=== PATIENT | female | born 1985 | race Caucasian/White ===

== ENCOUNTER 2016-04-15 21:34 | Emergency (ER) | payer SELFPAY ==
--- NOTE | 2016-04-15 21:53 | ER Document Report ---
ED Medical Screen (RME) - General Stated Complaint: RAPID HEART BEAT/CHEST PAIN Notes: 30 yo female c/o rapid heart beat and palpitations since 0 today. 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 no chest pain. mild shortness of breath. small amount of caffeine today, no OTC supplements or vitamins, + smoker. TRAVEL OUTSIDE OF THE [place] IN LAST 30 DAYS: No - Related Data Allergies/Adverse Reactions: Sulfa (Sulfonamide Antibiotics) Allergy (Verified 09/30/12 22:14) shrimp Allergy (Intermediate, Uncoded 09/30/12 22:14) Past Medical History - Social History Family history: Reviewed & Not Pertinent Psychiatric Medical History: Reports: Hx Depression Past Surgical History: Reports: Hx Cardiac Catheterization - WPW ablation, Hx Genitourinary Surgery - Cervical ablation (LEEP)
[2016-04-15 22:16] LABS: ABSOLUTE BASOPHILS # (AUTO) 0.1 10^3/uL (0.0-0.2); ABSOLUTE EOSINOPHILS # (AUTO) 0.2 10^3/uL (0.0-0.6); ABSOLUTE LYMPHOCYTES (AUTO) 3.7 10^3/uL (0.5-4.7); ABSOLUTE NEUT (AUTO) 6.5 10^3/uL (1.7-8.2); BASOPHILS % (AUTO) 0.8 % (0-2); EOSINOPHILS % (AUTO) 1.6 % (0-6); HEMATOCRIT 40.5 % (36.0-47.0); HEMOGLOBIN 14.1 g/dL (12.0-15.5); HGB HCT DIFFERENCE 1.8; LYMPHOCYTES % (AUTO) 31.9 % (13-45); MEAN CORPUSCULAR HEMOGLOBIN 29.8 pg (27.0-33.4); MEAN CORPUSCULAR HGB CONC 34.7 g/dL (32.0-36.0); MEAN CORPUSCULAR VOLUME 86 fl (80-97); MONOCYTES % (AUTO) 8.6 % (3-13); RED BLOOD COUNT 4.71 10^6/uL (3.72-5.28); RED CELL DISTRIBUTION WIDTH 12.7 % (11.5-14.0); SEGMENTED NEUTROPHILS % (AUTO) 57.1 % (42-78); WHITE BLOOD COUNT 11.5 10^3/uL (4.0-10.5)
[2016-04-15 22:35] LABS: ALANINE AMINOTRANSFERASE 22 U/L (9-52); ALBUMIN 4.6 g/dL (3.5-5.0); ALKALINE PHOSPHATASE 79 U/L (38-126); ANION GAP 12 (5-19); ASPARTATE AMINO TRANSFERASE 17 U/L (14-36); BILIRUBIN,TOTAL 0.4 mg/dL (0.2-1.3); BLOOD UREA NITROGEN 14 mg/dL (7-20); CALCIUM 9.8 mg/dL (8.4-10.2); CARBON DIOXIDE 26 mmol/L (22-30); CHLORIDE 104 mmol/L (98-107); CREATININE RESULT 0.63 mg/dL (0.52-1.25); GLUCOSE 99 mg/dL (75-110); POTASSIUM 4.1 mmol/L (3.6-5.0); SODIUM 141.7 mmol/L (137-145); TOTAL PROTEIN 7.4 g/dL (6.3-8.2)
--- NOTE | 2016-04-15 23:54 | ER Document Report ---
ED General - General Chief Complaint: Palpitations Stated Complaint: RAPID HEART BEAT/CHEST PAIN Notes: Patient is a 30-year-old female who presents with palpitations that of been ongoing since this morning. States that she has a history of similar symptoms in the past and was actually on a beta ja at one point but discontinued this due to side effects. States she often has his but typically they resolve spontaneously. Nothing worsens her symptoms. Notes that she has been drinking a large amount of caffeine recently due to schoolwork. She has not seen her primary care physician or child abuse worker regarding today's concerns. She denies any associated hemoptysis, shortness of breath, diaphoresis, or exertional dyspnea. No chest pain. No history of DVT or pulmonary embolus. TRAVEL OUTSIDE OF THE [place] IN LAST 30 DAYS: No - Related Data Allergies/Adverse Reactions: Sulfa (Sulfonamide Antibiotics) Allergy (Verified 09/30/12 22:14) shrimp Allergy (Intermediate, Uncoded 09/30/12 22:14) Past Medical History - General Information source: Patient - Social History Smoking Status: Current Every Day Smoker Frequency of alcohol use: None Drug Abuse: None Lives with: Spouse/Significant other Family History: Reviewed & Not Pertinent Patient has suicidal ideation: No Patient has homicidal ideation: No Renal/ Medical History: Denies: Hx Peritoneal Dialysis Psychiatric Medical History: Reports: Hx Depression Past Surgical History: Reports: Hx Cardiac Catheterization - WPW ablation, Hx Genitourinary Surgery - Cervical ablation (LEEP) Review of Systems - Review of Systems Notes: Constitutional: Negative for fever. HENT: Negative for sore throat. Eyes: Negative for visual changes. Cardiovascular: Negative for chest pain. Positive for palpitations Respiratory: Negative for shortness of breath. Gastrointestinal: Negative for abdominal pain, vomiting or diarrhea. Genitourinary: Negative for dysuria. Musculoskeletal: Negative for back pain. Skin: Negative for rash. Neurological: Negative for headaches, weakness or numbness. 10 point ROS negative except as marked above and in HPI. Physical Exam - Vital signs Vitals: Temp Pulse BP Pulse Ox 97.8 F 71 101/67 99 04/16/16 00:28 04/16/16 00:28 04/16/16 00:28 04/16/16 00:28 Interpretation: Normal Notes: PHYSICAL EXAMINATION: GENERAL: Well-appearing, well-nourished and in no acute distress. HEAD: Atraumatic, normocephalic. EYES: Pupils equal round and reactive to light, extraocular movements intact, sclera anicteric, conjunctiva are normal. ENT: nares patent, oropharynx clear without exudates. Moist mucous membranes. NECK: Normal range of motion, supple without lymphadenopathy LUNGS: Breath sounds clear to auscultation bilaterally and equal. No wheezes rales or rhonchi. HEART: Regular rate and rhythm without murmurs ABDOMEN: Soft, nontender, normoactive bowel sounds. No guarding, no rebound. No masses appreciated. EXTREMITIES: Normal range of motion, no pitting or edema. No cyanosis. NEUROLOGICAL: No focal neurological deficits. Moves all extremities spontaneously and on command. PSYCH: Normal mood, normal affect. SKIN: Warm, Dry, normal turgor, no rashes or lesions noted. Course - Re-evaluation Re-evalutation: 04/15/16 23:53 Patient presents with palpitations but is in no acute distress. Vitals within normal limits at time of arrival. EKG unremarkable with a normal sinus rhythm. Laboratories are unremarkable. Patient denies any chest pain, shortness of breath, or vomiting. At this time based on exam and history do not suspect a new onset arrhythmia, ACS, acute pulmonary embolus, aortic dissection. Patient encouraged to follow-up with her primary care physician as well as cardiology and a referral has been provided. At this time will discharge with return precautions and follow-up recommendations. Verbal discharge instructions given a the bedside and opportunity for questions given. Medication warnings reviewed. Patient is in agreement with this plan and has verbalized understanding of return precautions and the need for primary care follow-up in the next 24-72 hours. - Vital Signs Vital signs: Temp Pulse Resp BP Pulse Ox 97.8 F 71 101/67 99 04/16/16 00:28 04/16/16 00:28 04/16/16 00:28 04/16/16 00:28 - Laboratory Result Diagrams: 04/15/16 22:00 04/15/16 22:00 Laboratory results interpreted by me: 04/15/16 22:00 WBC 11.5 H - EKG Interpretation by Me Additional EKG results interpreted by me: 04/16/16 03:39 Normal sinus rhythm. Intermittent PVCs. Rate 70. No ST elevations or depressions. Discharge - Discharge Clinical Impression: Palpitations Condition: Good Disposition: HOME, SELF-CARE Additional Instructions: Please follow-up closely with cardiology regarding your palpitations. Return if you pass out, have shortness of breath, persistent vomiting, develop significant chest pain, or have any other symptoms that are concerning to you. Referrals: LORENZO MATHIAS MD [ACTIVE STAFF] - Follow up as needed
[2016-04-16 00:30] VITALS: BP 101/67
--- NOTE | 2016-04-16 12:55 | EKG REPORT ---
SEVERITY:- OTHERWISE NORMAL ECG - SINUS RHYTHM VENTRICULAR PREMATURE COMPLEX : Confirmed by: Yulissa Velasquez 16-Apr-2016 12:54:24
== END 2016-04-16 00:31 | disposition home or self-care (01) ==
LOC: ER 21:34
DX: R00.2 Palpitations (principal); F17.200 Nicotine dependence, unspecified, uncomplicated; Z88.2 Allergy status to sulfonamides; Z91.013 Allergy to seafood
CPT/HCPCS: 36415; 71020; 80053; 85025; 93005; 93010; 99285

== ENCOUNTER 2017-03-27 17:46 | Emergency (ER) | payer SELFPAY ==
[2017-03-27 17:51] VITALS: BP 139/85
[2017-03-27] MEDS ORDERED: ACETAMINOPHEN 325 MG TABLET PO ONE (18:01)
--- NOTE | 2017-03-27 18:06 | ER Document Report ---
HPI - HPI Patient complains to provider of: right hand pain Onset: This afternoon Onset/Duration: Sudden Quality of pain: Achy Severity: Severe Pain Level: 4 Context: Patient presents emergency department with complaints of right pinky finger pain after slamming her hand in the house door. Complains of pain when movement. No open wounds or laceration. Reports she has not taken anything for the pain, except the Tylenol. Complains of pain with movement. Associated Symptoms: None Exacerbated by: Movement Relieved by: Denies Similar symptoms previously: No Recently seen / treated by doctor: No - REPRODUCTIVE Reproductive: DENIES: : Past Medical History - General Information source: Patient Last Menstrual Period: current - Social History Smoking Status: Unknown if Ever Smoked Cigarette use (# per day): No Frequency of alcohol use: None Drug Abuse: None Family History: Reviewed & Not Pertinent Patient has suicidal ideation: No Patient has homicidal ideation: No - Past Medical History Cardiac Medical History: Reports: Other - WPW Renal/ Medical History: Denies: Hx Peritoneal Dialysis Psychiatric Medical History: Reports: Hx Depression Past Surgical History: Reports: Hx Cardiac Catheterization - WPW ablation, Hx Genitourinary Surgery - Cervical ablation (LEEP) Vertical Provider Document - CONSTITUTIONAL Agree With Documented VS: Yes Exam Limitations: No Limitations General Appearance: WD/WN, Mild Distress - wince when finger palpated - INFECTION CONTROL TRAVEL OUTSIDE OF THE [place] IN LAST 30 DAYS: No - HEENT HEENT: Atraumatic, Normocephalic - NECK Neck: Supple - RESPIRATORY Respiratory: No Respiratory Distress O2 Sat by Pulse Oximetry: 96 - MUSCULOSKELETAL/EXTREMETIES Musculoskeletal/Extremeties: Tender - right 5th finger(pinky) ttp, no obvious deformity, very slight swelling, good cap refill - NEURO Level of Consciousness: Awake, Alert, Appropriate Motor/Sensory: No Motor Deficit - DERM Integumentary: Warm, Dry Course - Re-evaluation Re-evalutation: 03/27/17 18:52 Patient instructed on negative x-ray. Patient instructed on rest ice elevate and take Tylenol for the pain. She verbalized understanding. - Vital Signs Vital signs: Temp Pulse Resp BP Pulse Ox 99.1 F 100 20 139/85 H 96 03/27/17 17:50 03/27/17 17:50 03/27/17 17:50 03/27/17 17:50 03/27/17 17:50 - Diagnostic Test Radiology reviewed: Image reviewed, Reports reviewed - EXAM DESCRIPTION: HAND RIGHT 3 VIEWS COMPLETED DATE/TIME: 03/27/2017 6:28 pm REASON FOR STUDY: finger/hand pain, shut in door COMPARISON: None. EXAM PARAMETERS: NUMBER OF VIEWS: Three views. TECHNIQUE: AP, lateral and oblique radiographic images acquired of the right hand. LIMITATIONS: None. FINDINGS: MINERALIZATION: Normal. BONES: No acute fracture or dislocation. No worrisome bone lesions. A tiny ossicle adjacent to the 5th digit proximal interphalangeal joint on the lateral radiograph is consistent with sequela of remote trauma. JOINTS: No effusions. SOFT TISSUES: No soft tissue swelling. No foreign body. OTHER: No other significant finding. IMPRESSION: NEGATIVE STUDY OF THE RIGHT HAND. NO RADIOGRAPHIC EVIDENCE OF ACUTE INJURY. Discharge - Discharge Clinical Impression: Pain in finger of right hand Condition: Stable Disposition: HOME, SELF-CARE Instructions: Acetaminophen, Ice & Elevation ([facility]) Additional Instructions: *You have been evaluated for right finger pain *Maintain the splint *Rest/Ice/Elevate *Follow up with orthopedics this week *Take tylenol as indicated for pain *Return to ED for worsening condition, changes, needs Monitor your blood pressure. Your blood pressure was elevated today. This may be because you were anxious, in pain or because you need medication. It is important to follow up with your primary care provider for full evaluation. Forms: Elevated Blood Pressure
--- NOTE | 2017-03-27 18:36 | RADIOLOGY REPORT (SQ) ---
EXAM DESCRIPTION: HAND RIGHT 3 VIEWS COMPLETED DATE/TIME: 03/27/2017 6:28 pm REASON FOR STUDY: finger/hand pain, shut in door COMPARISON: None. EXAM PARAMETERS: NUMBER OF VIEWS: Three views. TECHNIQUE: AP, lateral and oblique radiographic images acquired of the right hand. LIMITATIONS: None. FINDINGS: MINERALIZATION: Normal. BONES: No acute fracture or dislocation. No worrisome bone lesions. A tiny ossicle adjacent to the 5th digit proximal interphalangeal joint on the lateral radiograph is consistent with sequela of justin te trauma. JOINTS: No effusions. SOFT TISSUES: No soft tissue swelling. No foreign body. OTHER: No other significant finding. IMPRESSION: NEGATIVE STUDY OF THE RIGHT HAND. NO RADIOGRAPHIC EVIDENCE OF ACUTE INJURY. TECHNICAL DOCUMENTATION: JOB ID: [id number] [employer]- All Rights Reserved
== END 2017-03-27 19:03 | disposition home or self-care (01) ==
LOC: ER 17:46
DX: M79.644 Pain in right finger(s) (principal); M79.89 Other specified soft tissue disorders; W23.0XXA Caught, crushed, jammed, or pinched between moving objects, initial encounter; Y92.009 Unspecified place in unspecified non-institutional (private) residence as the place of occurrence of the external cause
CPT/HCPCS: 99283

== ENCOUNTER 2017-08-10 22:49 | Emergency (ER) | payer SELFPAY ==
[2017-08-10 23:49] LABS: AMORPHOUS SEDIMENT,URINE TRACE /HPF; APPEARANCE,URINE CLOUDY; BILIRUBIN,URINE NEGATIVE (NEGATIVE); COLOR,URINE YELLOW; GLUCOSE, URINE NEGATIVE (NEGATIVE); KETONES,URINE NEGATIVE (NEGATIVE); LEUKOCYTE ESTERASE,URINE TRACE (NEGATIVE); NITRITE,URINE NEGATIVE (NEGATIVE); PROTEIN,URINE 30 mg/dL (NEGATIVE); URINE SPECIFIC GRAVITY 1.021; UROBILINOGEN,URINE NEGATIVE mg/dL (<2.0)
[2017-08-11] MEDS ORDERED: LIDOCAINE 1% INJ-PF (10 MG/ML) 30 ML SDV INFIL ONE (01:18)
[2017-08-11] MEDS ORDERED: CEFTRIAXONE INJ 1000 MG VIAL IM ONE (01:18)
[2017-08-11] MEDS ORDERED: ONDANSETRON 4 MG TAB.RAPDIS PO ONE (01:18)
[2017-08-11] MEDS ORDERED: ONDANSETRON ODT 4 MG TAB (6 TAB/ER DISP) PO PRN (01:19)
--- NOTE | 2017-08-11 01:21 | ER Document Report ---
ED General - General Chief Complaint: Urinary Problem Stated Complaint: BACK PAIN/NAUSEA Time Seen by Provider: 08/11/17 01:11 Notes: Patient is 31-year-old female presents with complaint of some pain over her bilateral lower back as well as some dysuria. Symptoms have been ongoing for 1- 2 days. Nausea. Some subjective fevers. No diarrhea. No suprapubic abdominal pain. No abnormal vaginal discharge or bleeding. She denies concerns for sexually transmitted diseases. No other complaints at this time. TRAVEL OUTSIDE OF THE [place] IN LAST 30 DAYS: No - Related Data Allergies/Adverse Reactions: Sulfa (Sulfonamide Antibiotics) Allergy (Verified 03/27/17 17:47) Past Medical History - Social History Smoking Status: Unknown if Ever Smoked Frequency of alcohol use: None Drug Abuse: None Family History: Reviewed & Not Pertinent Renal/ Medical History: Denies: Hx Peritoneal Dialysis Psychiatric Medical History: Reports: Hx Depression Past Surgical History: Reports: Hx Cardiac Catheterization - WPW ablation, Hx Genitourinary Surgery - Cervical ablation (LEEP) Review of Systems - Review of Systems Notes: My Normal Review Basic REVIEW OF SYSTEMS: CONSTITUTIONAL : Subjective fevers RESPIRATORY: Denies cough, cold, or chest congestion. Denies shortness of breath, difficulty breathing, or wheezing. GASTROINTESTINAL: Bilateral flank pain. Denies nausea, vomiting, or diarrhea. GENITOURINARY: Dysuria FEMALE GENITOURINARY: Denies vaginal bleeding, abnormal or irregular periods. LMP: MUSCULOSKELETAL: Denies neck or back pain or joint pain or swelling. SKIN: Denies rash or skin lesions. NEUROLOGICAL: Denies altered mental status or loss of consciousness. Denies headache. Denies weakness or paralysis or loss of use of either side. Denies problems with gait or speech. Denies sensory or motor loss. ALL OTHER SYSTEMS REVIEWED AND NEGATIVE. Physical Exam - Vital signs Vitals: Temp Pulse Resp BP Pulse Ox 98.8 F 74 18 116/71 99 08/10/17 23:31 08/10/17 23:31 08/10/17 23:31 08/10/17 23:31 08/10/17 23:31 - Notes Notes: General Appearance: Well nourished, alert, cooperative, no acute distress, no obvious discomfort. Vitals: reviewed, See vital signs table. Head: no swelling or tenderness to the head Eyes: PERRL, EOMI, Conjuctiva clear Mouth: No decreasd moisture Throat: No tonsillar inflammation, No airway obstruction, No lymphadenopathy Lungs: No wheezing, No rales, No rhonci, No accessory muscle use, good air exchange bilaterally. Heart: Normal rate, Regular rythm, No murmur, no rub Back: Negative Luis's sign bilaterally. Abdomen: Normal BS, soft, No rigidity, mild suprapubic abdominal tenderness bilaterally, No guarding, no rebound, Extremities: strength 5/5 in all extremities, good pulses in all extremities, no swelling or tenderness in the extremities. Skin: warm, dry, appropriate color, no rash Neuro: speech clear, oriented x 3, normal affect, responds appropriately to questions. Course - Re-evaluation Re-evalutation: 08/11/17 06:24 This time patient clinically looks well. She has symptoms in urinalysis findings consistent with urinary tract infection. I will place her on antibiotic. Encouraged her return to ER immediately if she has severe pain, fevers, vomiting, or feels unwell. Patient agrees with plan will be discharged home. Dictation of this chart was performed using voice recognition software; therefore, there may be some unintended grammatical errors. - Vital Signs Vital signs: Temp Pulse Resp BP Pulse Ox 98.4 F 82 16 113/72 100 08/11/17 01:34 08/11/17 01:34 08/11/17 01:34 08/11/17 01:34 08/11/17 01:34 - Laboratory Laboratory results interpreted by me: 08/10/17 23:35 Urine Protein 30 H Urine Blood MODERATE H Ur Leukocyte Esterase TRACE H Urine Ascorbic Acid 40 H Discharge - Discharge Clinical Impression: UTI (urinary tract infection) Qualifiers: Urinary tract infection type: site unspecified Hematuria presence: without hematuria Qualified Code(s): N39.0 - Urinary tract infection, site not specified Condition: Good Disposition: HOME, SELF-CARE Additional Instructions: Please take the antibiotics as prescribed. please return to the ER immediately if you have worsening pain, recurrent vomiting, recurrent fevers, or if you feel that you are worsening. Follow up with a doctor in 2-3 days for reevaluation Prescriptions: Cephalexin Monohydrate [Keflex 500 mg Capsule] 500 mg PO BID #14 capsule Referrals: [facility],NO [Primary Care Provider] - Follow up as needed
[2017-08-11 01:36] VITALS: BP 113/72
== END 2017-08-11 01:50 | disposition home or self-care (01) ==
LOC: ER 22:49
DX: N39.0 Urinary tract infection, site not specified (principal); R11.0 Nausea; M54.5 Low back pain; Z88.2 Allergy status to sulfonamides
CPT/HCPCS: 99283; 96372; 87086; 81025; 87088; 81001; 87186; S0119; J3490; J0696

== ENCOUNTER 2017-11-27 06:10 | Emergency (ER) | payer MEDICAID ==
--- NOTE | 2017-11-27 06:51 | ER Document Report ---
ED GI/ - General Chief Complaint: Vaginal Bleeding Stated Complaint: VAGINAL BLEEDING Time Seen by Provider: 11/27/17 06:31 TRAVEL OUTSIDE OF THE [place] IN LAST 30 DAYS: No - HPI Notes: 11/27/17 06:49 Patient is a 32-year-old female at 15 weeks gestational age by ultrasound that presents to the emergency department for chief complaint of vaginal bleeding. Patient reports vaginal bleeding started this morning at 5 AM after intercourse. She states it is bright red. She denies any lower abdominal cramping, nausea, vomiting, dysuria, fevers and chills. She has been seen by the health department and received an ultrasound showing 1 intrauterine gestation. She has an appointment with [facility] at [facility] next week. She denies any trauma to her abdomen. Past Medical History: Negative Past Surgical History: Negative Social History: Reviewed in chart Family History: Reviewed and noncontributory for presenting illness Allergies: Reviewed, see documented allergy list. REVIEW OF SYSTEMS: CONSTITUTIONAL : No fever No chills No diaphoresis No recent illness EENT: No vision changes No congestion No sore throat CARDIOVASCULAR: No chest pain No palpitations RESPIRATORY: No shortness of breath No cough No difficulty breathing GASTROINTESTINAL: No abdominal pain No nausea No vomiting No diarrhea GENITOURINARY: No dysuria No hematuria No difficulty urinating Vaginal bleeding MUSCULOSKELETAL: No back pain No leg pain No arm pain SKIN: No rashes No lesions LYMPHATIC: No swollen, enlarged glands. NEUROLOGICAL: No lightheadedness No headache No weakness No paresthesias PSYCHIATRIC: No anxiety No depression PHYSICAL EXAMINATION: Vital signs reviewed, nursing noted reviewed. GENERAL: Well-appearing, well-nourished and in no acute distress. HEAD: Atraumatic, normocephalic. EYES: Eyes appear normal, extraocular movements intact, sclera anicteric, conjunctiva are normal. ENT: nares patent, oropharynx clear without exudates. Moist mucous membranes. NECK: Normal range of motion, supple without lymphadenopathy LUNGS: Breath sounds clear to auscultation bilaterally and equal. No wheezes rales or rhonchi. HEART: Regular rate and rhythm without murmurs ABDOMEN: Soft, nontender, normoactive bowel sounds. No rebound, guarding, or rigidity. No masses appreciated. Uterus palpated above the pubic symphysis, soft nontender. : EXTREMITIES: Nontender, good range of motion, no pitting or edema. NEUROLOGICAL: No focal neurological deficits. Moves all extremities spontaneously Motor and sensory grossly intact on exam. PSYCH: Normal mood, normal affect. SKIN: Warm, Dry, normal turgor, no rashes or lesions noted on exposed skin - Related Data Allergies/Adverse Reactions: Sulfa (Sulfonamide Antibiotics) Allergy (Verified 03/27/17 17:47) Past Medical History - Social History Smoking Status: Never Smoker Family History: Reviewed & Not Pertinent Renal/ Medical History: Denies: Hx Peritoneal Dialysis Psychiatric Medical History: Reports: Hx Depression Past Surgical History: Reports: Hx Cardiac Catheterization - WPW ablation, Hx Genitourinary Surgery - Cervical ablation (LEEP) Physical Exam - Vital signs Vitals: Temp Pulse Resp BP Pulse Ox 97.7 F 97 16 122/73 98 11/27/17 06:15 11/27/17 06:15 11/27/17 06:15 11/27/17 06:15 11/27/17 06:15 Course - Re-evaluation Re-evalutation: 11/27/17 10:03 Vitals reviewed. Nursing notes reviewed. Patient is hemodynamically stable. Lab work shows normal hemoglobin. Patient does have a negative Rh and was given RhoGam for her vaginal bleeding during . She has confirmed intrauterine on ultrasound previously obtained an ectopic not suspected. heart tones 150-160. Patient declined any concern for gonorrhea chlamydia stating she had recent negative testing therefore prophylactic antibiotics will not be given today. GC chlamydia cultures were sent. The remainder of patient's testing today is unremarkable. She will follow with [facility] for close monitoring of her possible miscarriage. She was discharged home in stable condition. Laboratory 11/27/17 11/27/17 11/27/17 07:12 07:12 07:12 WBC 11.2 H RBC 4.11 Hgb 12.8 Hct 35.7 L MCV 87 MCH 31.1 MCHC 35.7 RDW 13.2 Plt Count 329 Seg Neutrophils % 71.8 Lymphocytes % 20.1 Monocytes % 7.0 Eosinophils % 0.6 Basophils % 0.5 Absolute Neutrophils 8.0 Absolute Lymphocytes 2.2 Absolute Monocytes 0.8 Absolute Eosinophils 0.1 Absolute Basophils 0.1 Beta HCG, Quant 26123.00 H Total Beta HCG POSITIVE Urine Color Urine Appearance Urine pH Ur Specific [place] Urine Protein Urine Glucose (UA) Urine Ketones Urine Blood Urine Nitrite Urine Bilirubin Urine Urobilinogen Ur Leukocyte Esterase Urine RBC (Auto) Urine Mucus (Auto) Urine Ascorbic Acid Trichomonas (Wet Prep) Vaginal WBC Vaginal RBC Vaginal Yeast Chlamydia DNA (PCR) NOT DETECTED N.gonorrhoeae DNA (PCR) NOT DETECTED Blood Type Antibody Screen Rhogam Indicated 11/27/17 11/27/17 11/27/17 07:12 07:34 07:55 WBC RBC Hgb Hct MCV MCH MCHC RDW Plt Count Seg Neutrophils % Lymphocytes % Monocytes % Eosinophils % Basophils % Absolute Neutrophils Absolute Lymphocytes Absolute Monocytes Absolute Eosinophils Absolute Basophils Beta HCG, Quant Total Beta HCG Urine Color YELLOW Urine Appearance SLIGHTLY-CLOUDY Urine pH 6.0 Ur Specific [place] 1.013 Urine Protein 30 H Urine Glucose (UA) NEGATIVE Urine Ketones TRACE H Urine Blood LARGE H Urine Nitrite NEGATIVE Urine Bilirubin NEGATIVE Urine Urobilinogen NEGATIVE Ur Leukocyte Esterase NEGATIVE Urine RBC (Auto) >182 Urine Mucus (Auto) OCC Urine Ascorbic Acid NEGATIVE Trichomonas (Wet Prep) NO TRICHOMONAS SEEN Vaginal WBC FEW WBCS SEEN Vaginal RBC 4+ RBCS SEEN Vaginal Yeast NO YEAST SEEN Chlamydia DNA (PCR) N.gonorrhoeae DNA (PCR) Blood Type O NEGATIVE Antibody Screen NEGATIVE Rhogam Indicated RHOGAM REQUESTED - Vital Signs Vital signs: Temp Pulse Resp BP Pulse Ox 97.7 F 97 16 122/73 98 11/27/17 06:15 11/27/17 06:15 11/27/17 06:15 11/27/17 06:15 11/27/17 06:15 - Laboratory Result Diagrams: 11/27/17 07:12 Laboratory results interpreted by me: 11/27/17 11/27/17 11/27/17 07:12 07:12 07:55 WBC 11.2 H Hct 35.7 L Beta HCG, Quant 89492.00 H Urine Protein 30 H Urine Ketones TRACE H Urine Blood LARGE H Discharge - Discharge Clinical Impression: Threatened miscarriage, Vaginal bleeding during Condition: Stable Disposition: HOME, SELF-CARE Instructions: Rhogam ([facility]), Threatened Miscarriage ([facility]) Additional Instructions: Please return to the emergency department if you have any worsening, or concern of your symptoms. Please return to the emergency department if you develop chest pain, difficulty breathing, severe abdominal pain, or ongoing vomiting. Please follow-up with your primary care physician in 2-3 days and any other recommended physicians. If prescribed, take all medications as directed. If you have any questions or concerns do not hesitate to return the emergency department for evaluation. [] Referrals: [facility] [Provider Group] - Follow up in 3-5 days
[2017-11-27 07:28] LABS: RBCS (WET MOUNT) 4+ RBCS SEEN; T.VAGINALIS (WET MOUNT) NO TRICHOMONAS SEEN; WBCS (WET MOUNT) FEW WBCS SEEN; YEAST (WET MOUNT) NO YEAST SEEN
[2017-11-27 07:34] LABS: ABSOLUTE BASOPHILS # (AUTO) 0.1 10^3/uL (0.0-0.2); ABSOLUTE EOSINOPHILS # (AUTO) 0.1 10^3/uL (0.0-0.6); ABSOLUTE LYMPHOCYTES (AUTO) 2.2 10^3/uL (0.5-4.7); ABSOLUTE MONOCYTES (AUTO) 0.8 10^3/uL (0.1-1.4); BASOPHILS % (AUTO) 0.5 % (0-2); EOSINOPHILS % (AUTO) 0.6 % (0-6); HEMATOCRIT 35.7 % (36.0-47.0); HEMOGLOBIN 12.8 g/dL (12.0-15.5); LYMPHOCYTES % (AUTO) 20.1 % (13-45); MEAN CORPUSCULAR HEMOGLOBIN 31.1 pg (27.0-33.4); MEAN CORPUSCULAR HGB CONC 35.7 g/dL (32.0-36.0); MEAN CORPUSCULAR VOLUME 87 fl (80-97); PLATELET COUNT 329 10^3/uL (150-450); RED BLOOD COUNT 4.11 10^6/uL (3.72-5.28); RED CELL DISTRIBUTION WIDTH 13.2 % (11.5-14.0); SEGMENTED NEUTROPHILS % (AUTO) 71.8 % (42-78); TOTAL CELLS COUNTED % (AUTO) 100 %; WHITE BLOOD COUNT 11.2 10^3/uL (4.0-10.5)
[2017-11-27 08:23] LABS: APPEARANCE,URINE SLIGHTLY-CLOUDY; BILIRUBIN,URINE NEGATIVE (NEGATIVE); COLOR,URINE YELLOW; GLUCOSE, URINE NEGATIVE (NEGATIVE); KETONES,URINE TRACE mg/dL (NEGATIVE); LEUKOCYTE ESTERASE,URINE NEGATIVE (NEGATIVE); NITRITE,URINE NEGATIVE (NEGATIVE); PROTEIN,URINE 30 mg/dL (NEGATIVE); URINE SPECIFIC GRAVITY 1.013; UROBILINOGEN,URINE NEGATIVE mg/dL (<2.0)
[2017-11-27 08:59] LABS: CHLAM PCR NOT DETECTED (NOT DETECT); GON PCR NOT DETECTED (NOT DETECT)
[2017-11-27 10:13] VITALS: BP 115/72
== END 2017-11-27 10:11 | disposition home or self-care (01) ==
LOC: ER 06:10
DX: O20.0 Threatened abortion (principal); Z3A.15 15 weeks gestation of pregnancy; O36.0920 Maternal care for other rhesus isoimmunization, second trimester, not applicable or unspecified; Z88.2 Allergy status to sulfonamides
CPT/HCPCS: 99284; 96372; 86900; 86901; 36415; 87210; 86850; 84702; 85025; 87491; 81001; 87591; J2790

== ENCOUNTER → 2018-01-22 | Outpatient (CLI) | payer MEDICAID | LOC: LAB 10:25 | PROVIDERS: ATTEND Obstetrics & Gynecology | DX: Z13.9 Encounter for screening, unspecified (principal) | CPT/HCPCS: 87070; 87880 ==

== ENCOUNTER 2018-01-26 18:06 | Emergency (ER) | payer MEDICAID ==
[2018-01-26 18:13] VITALS: BP 122/67
[2018-01-26 19:22] LABS: A TYPE INFLUENZA AG NEGATIVE (NEGATIVE); B INFLUENZA AG NEGATIVE (NEGATIVE)
--- NOTE | 2018-01-26 20:14 | ER Document Report ---
Doctor's Note Notes: 01/26/18 20:13 I went into the room to evaluate this patient and she was not in the room and there was no belongings in the room I have tried calling her numbers several times but there is no answering machine for me to leave a message and address she is not available at this time. I did not see the patient and I did not evaluate the patient
== END 2018-01-26 20:19 | disposition left against medical advice (07) ==
LOC: ER 18:06
DX: Z53.21 Procedure and treatment not carried out due to patient leaving prior to being seen by health care provider (principal)
CPT/HCPCS: 87804; 99281

== ENCOUNTER → 2020-02-08 | Outpatient (CLI) | payer SELFPAY ==
--- NOTE | 2020-02-08 17:10 | RADIOLOGY REPORT (SQ) ---
EXAM DESCRIPTION: U/S [id number] TRNABD 1GES W/ODOP IMAGES COMPLETED DATE/TIME: 02/08/2020 3:31 pm REASON FOR STUDY: (Z34.81)ENCOUNTER FOR SUPRVSN OF NORMAL , FIRST TRIMESTER Z34.81 ENCOUNT ER FOR SUPRVSN OF NORMAL , FIRST TRIM COMPARISON: None. TECHNIQUE: Transvaginal Static and realtime grayscale images acquired of the pelvis. Additional aiden cted spectral and color Doppler images recorded. All images stored on PACs. bHCG: None available CLINICAL DATES: LMP 12/11/2019, estimated gestational age 8 weeks 3 days LIMITATIONS: None. FINDINGS: FETUS: Single Living intrauterine . ULTRASOUND EGA: 7 weeks 0 days ULTRASOUND HERNANDO: 09/26/2020 EFW: Not applicable less than 20 weeks. CRL: 0.97 cm FHR: 137 beats per minute. SURVEY: No visualized anomalies. AMNIOTIC FLUID: Adequate amount. PLACENTA: Not yet developed due to early gestation. SUBCHORIONIC BLEED: None SIZE OF BLEED: Not applicable. UTERUS: No masses. No anomalies. CERVICAL LENGTH: 2.2 cm Closed. RIGHT ADNEXA: The right ovary has normal size and appearance. Probable corpus luteum follicle within the right ovary. No adnexal free fluid. No adnexal masses. LEFT ADNEXA: Normal ovary with normal vascular flow. No adnexal free fluid. No adnexal masses. FREE FLUID: None. OTHER: No other significant finding. IMPRESSION: LIVING INTRAUTERINE . EGA 7 weeks 0 days Trimester of : First trimester - 0 to 13 weeks. TECHNICAL DOCUMENTATION: JOB ID: [id number] [employer]- All Rights Reserved rev Reading location - IP/workstation name: [email or web address]
== END ==
LOC: RAD 16:00
PROVIDERS: ATTEND Nurse Practitioner Family
DX: Z34.81 Encounter for supervision of other normal pregnancy, first trimester (principal); Z3A.01 Less than 8 weeks gestation of pregnancy
CPT/HCPCS: 76801